=== PATIENT | male | born 1955 | race Caucasian/White ===

== ENCOUNTER 2016-11-21 16:30 | Emergency (ER) | payer OTHER ==
[~2016-11-21 16:30] MED LIST: PROVENTIL HFA6.7 G1 INH
[2016-11-21] MEDS ORDERED: NORVASC10 M2 PO (17:00)
[2016-11-21] MEDS ORDERED: COLAZAL750 M1 PO (17:01)
[2016-11-21] MEDS ORDERED: CALTRATE 600 +1 EAC2 PO (17:01)
[2016-11-21] MEDS ORDERED: SINEMET CR 50-1 EACH PO ×2 (17:02→17:06)
[2016-11-21] MEDS ORDERED: AMLODIPINE BESY10 M1 PO (17:04)
[2016-11-21] MEDS ORDERED: OS-CAL 500+D31 EAC1 PO (17:05)
[2016-11-21] MEDS ORDERED: BALSALAZIDE DI750 M4 PO (17:05)
[2016-11-21] MEDS ORDERED: CATAPRES0.2 M1 PO (17:07)
[2016-11-21] MEDS ORDERED: LODINE400 M2 (17:07)
[2016-11-21] MEDS ORDERED: VITAMIN D3400 UNI4 PO (17:07)
[2016-11-21] MEDS ORDERED: FOLIC ACID1 M1 PO (17:08)
[2016-11-21] MEDS ORDERED: HYDROCHLOROTHIA25 M1 PO (17:08)
[2016-11-21] MEDS ORDERED: PRINIVIL20 M1 PO (17:08)
[2016-11-21] MEDS ORDERED: GLUCOPHAGE500 M3 PO (17:09)
[2016-11-21] MEDS ORDERED: MIRTAZAPINE30 M2 PO (17:09)
[2016-11-21] MEDS ORDERED: ZOCOR80 M1 PO (17:09)
[2016-11-21] MEDS ORDERED: MERCAPTOPURINE50 M1 PO (17:09)
[2016-11-21] MEDS ORDERED: ULTRAM50 M1 PO (17:10)
[2016-11-21 17:22] LABS: BASO % 0.3 % (0-2); HCT-HEMATOCRIT 45.1 % (36.0-53.5); HGB-HEMOGLOBIN 15.6 gm/dl (13.5-17.0); IMMATURE GRANULOCYTES ABSOLUTE 0.03 tho/cmm (0-0.03); IMMATURE GRANULOCYTES PERCENT 0.4 % (0-0.3); LYMPH % 2.8 % (20-45); LYMPH ABSOLUTE COUNT 0.2 tho/cmm (0.8-4.5); MCH (MEAN CORPUSCULAR HGB) 33.3 pg (28.0-32.0); MCHC MEAN CORPUSCULAR HGB CONC 34.6 % (32.0-36.0); MCV (MEAN CELL VOLUME) 96.4 fl (82.0-96.0); MEAN PLATELET VOLUME 11.2 cmc (9.4-12.4); MONO % 2.2 % (0-12); MONOCYTE ABSOLUTE COUNT 0.2 tho/cmm (0.0-1.2); NEUTROPHIL ABSOLUTE COUNT 7.4 tho/cmm (1.6-8.0); NEUTROPHIL-AUTOMATED 7.4 tho/cmm (1.6-8.0); NEUTROPHILS % 94.3 % (40-80); PLATELET COUNT 220 tho/cmm (150-450); RED BLOOD COUNT 4.68 mil/cmm (4.40-5.70); RED CELL DISTRIBUTION WIDTH 14.2 % (12.4-16.4); WHITE BLOOD COUNT 7.9 tho/cmm (4.0-10.0)
[2016-11-21 17:39] LABS: ALB/GLOB RATIO 0.9 (0.8-2.0); ALBUMIN 3.7 g/dl (3.5-5.0); ALKALINE PHOSPHATASE 82 U/L (33-138); ALT/SGPT 53 U/L (12-78); ANION GAP 16 mmol/L (0-20); AST/SGOT 42 U/L (10-40); BILIRUBIN,TOTAL 0.6 mg/dl (0.0-1.5); BLOOD UREA NITROGEN 14 mg/dl (6-24); CALCIUM 8.7 mg/dl (8.5-10.5); CARBON DIOXIDE-VENOUS 24 mmol/L (22-32); CHLORIDE 106 mmol/l (96-110); CREATININE 0.92 mg/dl (0.60-1.30); GLUCOSE 153 mg/dL (70-110); LIPASE 157 U/L (73-393); POTASSIUM 3.9 mmol/L (3.7-5.1); SODIUM 142 mmol/L (135-145); eGFR VALUE FOR BLACK >90 mL/Min
== END 2016-11-21 20:00 ==
LOC: EDMED 16:30
PROVIDERS: Emergency Medicine
DX: G89.18 Other acute postprocedural pain (principal); R10.84 Generalized abdominal pain; Z98.890 Other specified postprocedural states; Z87.19 Personal history of other diseases of the digestive system
CPT/HCPCS: J2270; J2405; J7030; Q9967